=== PATIENT | female | born 1995 | race African-American/Black ===

== ENCOUNTER 2018-05-22 16:45 | Emergency (ER) | payer MEDICAID ==
[~2018-05-22] VITALS: Ht 162.6 cm; Wt 68.0 kg
[2018-05-22] MEDS ORDERED: KETOROLAC 30MG/ML VIAL IM ONE (17:15)
[2018-05-22] MEDS ORDERED: ONDANSETRON HCL 4MG TABLET PO ONE (19:15)
[2018-05-22] MEDS ORDERED: HYDROCODONE/ACETAMINOPHEN 5/325MG TABLET PO PRN (19:15)
[2018-05-22 19:42] VITALS: BP 122/66
== END 2018-05-22 20:16 | disposition home or self-care (01) ==
LOC: ER 17:04
DX: S02.2XXA Fracture of nasal bones, initial encounter for closed fracture (principal); S02.609A Fracture of mandible, unspecified, initial encounter for closed fracture; V43.52XA Car driver injured in collision with other type car in traffic accident, initial encounter; Y93.89 Activity, other specified; Y92.410 Unspecified street and highway as the place of occurrence of the external cause
CPT/HCPCS: 70450; 70486; 81025; 96372; 99284; J1885; Q0162